=== PATIENT | female | born 1955 | race Caucasian/White ===

== ENCOUNTER → 2017-03-08 | Day surgery (SDC) | payer BC ==
[~2017-03-08] MED LIST: BUDE10.2 IH; CANA100T PO; FLUO40CA2 PO; GABA600T2 PO; GLYB5TAB3 PO; HYDROmorphone 2 MG/ML VIAL IV PRN; INSU100I13 SQ; IV RINGERS,LACTATED 1000ML 1,000 ML IV SCH; LEVO175T5 PO; LIDOCAINE 1% 1 ML SYRINGE. ID PRN; LIDOCAINE 2% PF Vial for OR 5 ML VIAL. ONE; LISI10TA2 PO; METF-620 PO; MORPHINE SULFATE 2 MG/ML DISP.SYRIN. IV PRN; ONDANSETRON PF 4 MG/2 ML VIAL. IV PRN; PRAM0.255 PO; PROCHLORPERAZINE 10 MG/2 ML VIAL. IV PRN; PROPOFOL 60 ML IV ONE; SIMV40TA3 PO; SODIUM PHOSPHATES 19/7GM 133 ML ENEMA. PR ONE; TEMA30CA PO; fentaNYL PF VIAL 100 MCG/2 ML VIAL IV PRN
[2017-03-08 11:18] VITALS: BP 112/58
--- NOTE | 2017-03-09 14:01 | PATHOLOGY ---
PATHOLOGY REPORT * * * * * * * * FINAL DIAGNOSIS: A. Small bowel biopsy: - No significant pathologic abnormalities. B. Gastric biopsy, antrum: - Chronic gastritis, mild to moderate. C. Esophageal biopsy, distal esophagus: - Segments of gastric mucosa showing chronic inflammation. D. Esophageal biopsy, middle esophagus: - Segments of mildly hyperplastic squamous esophageal mucosa. E. Colon biopsy, sigmoid colon: - No significant pathologic abnormalities. COMMENT: Sections of the small bowel biopsy reveal segments of duodenal mucosa. Where best oriented, the mucosal villi appear normal. There are no sprue-like changes or significant inflammatory changes. Sections of the gastric biopsy reveal gastric antral and antral/body transition mucosa showing congestion and mild to moderate chronic inflammation. An immunoperoxidase stain for Helicobacter is obtained. No Helicobacter organisms are identified. Sections of the distal esophageal biopsy reveal segments of gastric mucosa showing mild to moderate chronic inflammation. There is no squamous esophageal mucosa. There is no evidence of Gibbs's change, dysplasia, or malignancy. Sections of the middle esophageal biopsy reveal segments of tangentially oriented, mildly hyperplastic squamous esophageal mucosa. There is no evidence of Gibbs's change, dysplasia or malignancy. Sections of the sigmoid colon biopsy reveal segments of colonic mucosa. There are no significant inflammatory changes. There are no adenomatous changes or evidence of malignancy. (JPM:pit; 03/09/2017) REPORT ELECTRONICALLY SIGNED BY: Dandre Escalera M.D. DATE/TIME: 03/09/2017 14:00 * * * * * * * * GROSS PATHOLOGY: A. Received in formalin labeled "small bowel," are multiple segments of valdes soft tissue measuring from 0.1 up to 0.4 cm in maximum dimension. The specimen is submitted entirely in cassette A1. B. Received in formalin labeled "gastric antrum," are two segments of valdes soft tissue measuring 0.3 and 0.6 cm in maximum dimension. The specimen is submitted entirely in cassette B1. C. Received in formalin labeled "distal esophagus," are two segments of valdes soft tissue measuring 0.2 and 0.3 cm in maximum dimension. The specimen is submitted entirely in cassette C1. D. Received in formalin labeled "mid esophagus," are two segments of valdes soft tissue measuring 0.1 and 0.3 cm in maximum dimension. The specimen is submitted entirely in cassette D1. E. Received in formalin labeled "sigmoid biopsy," is a segment of valdes soft tissue measuring 0.3 cm in maximum dimension. The specimen is submitted entirely in cassette E1. (JPM; 03/08/17) INITIAL CPT CODE(S): A; 63764 B; 31635, 12756 C; 32835 D; 53149 E; 86318 Professional services performed by [facility] at [address] [address] Technical services performed by [facility] at [address] [place] [address], [facility] [address], [place] [address]. SPECIMEN(S) RECEIVED: A.Small bowel biopsy B.Gastric antrum biopsy C.Distal esophageal biopsy D.Mid esophagus biopsy E.Sigmoid biopsy CLINICAL HISTORY: GERD, colon screen PATIENT: CEE CONROY /AGE: 109/11/1955 (Age: 61) PATIENT #: [id number] ALT CASE #: SPECIMEN COLLECTION DATE: 03/08/2017 SPECIMEN RECEIVED DATE: 03/08/2017 [facility] - [id number] [address] - PHONE: [phone] * * * END OF REPORT * * *
== END | disposition home or self-care (01) ==
LOC: ENDOS 09:29
PROVIDERS: ATTEND Internal Medicine Gastroenterology
DX: Z12.11 Encounter for screening for malignant neoplasm of colon (principal); D12.5 Benign neoplasm of sigmoid colon; K64.0 First degree hemorrhoids; E78.00 Pure hypercholesterolemia, unspecified; I10 Essential (primary) hypertension; J44.9 Chronic obstructive pulmonary disease, unspecified; E66.9 Obesity, unspecified; E11.9 Type 2 diabetes mellitus without complications; E03.9 Hypothyroidism, unspecified; F41.9 Anxiety disorder, unspecified; Z68.43 Body mass index [BMI] 50.0-59.9, adult; Z87.442 Personal history of urinary calculi; Z88.2 Allergy status to sulfonamides; Z86.69 Personal history of other diseases of the nervous system and sense organs; Z86.14 Personal history of Methicillin resistant Staphylococcus aureus infection
CPT/HCPCS: 45380; 82962; 88305; 88342; J2001; J2704